=== PATIENT | female | born 2000 | race Caucasian/White ===

== ENCOUNTER 2023-04-28 19:51 | Emergency (ER) | payer SELFPAY ==
[2023-04-28 20:06] VITALS: BP 127/47; PULSE 85; RESP 20; TEMP 36.8; O2SAT 100; BMI 21.4
--- NOTE | 2023-04-28 20:35 | PC.NURSE ---
patient awake and alert. skin pwd, resp even and non labored. speaking in full, clear sentences. patient states that she was wearing non puncture gloves and moved a racoon that was on the side of the road, patient states the racoon bit her left index finger, dried blood noted on finger and what appears to be a puncture area is noted. patient states that another person whom she does not know was able to capture the racoon in a cardboard box and was waiting for animal control. This RN called [facility] animal control to see if the racoon was picked up, message left. patient unsure of the last time she received a tetanus vaccine
[2023-04-28 21:20] VITALS: BP 144/90; PULSE 78; RESP 18; TEMP 36.7; O2SAT 99
--- NOTE | 2023-04-28 21:38 | PC.NURSE ---
This RN spoke with [facility] animal biologist who states that they were not informed that anyone was bitten by the racoon and they did not take the racoon, they did recommend patient start treatment. This RN completed animal bite form and will fax to animal control.
[2023-04-28] MEDS: Amoxicillin/Potassium Clav 875 MG TABLET PO (22:43)
[2023-04-28] MEDS: Rabies Vaccine, Human Diploid (Imovax) 1 ML VIAL IM (22:43)
[2023-04-28] MEDS: Diphth,Pertus(ACell),Tet Adult 0.5 ML SYRINGE IM (22:44)
[2023-04-28] MEDS: Rabies Immune Globulin/PF 900 UNIT/3 ML VIAL 1060 UNIT IM (22:45)
--- NOTE | 2023-04-28 22:52 | ED.GENADULT ---
HPI - General Adult General Chief complaint: Animal Bite Stated complaint: raccoon bite left hand Time Seen by Provider: 04/28/23 21:45 Source: patient, RN notes reviewed and old records reviewed Mode of arrival: ambulatory Limitations: no limitations History of Present Illness HPI narrative: 23-year-old female who denies any past medical history presents for evaluation of a raccoon bite. Patient was trying to assist another individual and moving a raccoon The patient was bit on her left index finger She has a small superficial puncture wound to the dorsal and ventral surface of the left index finger No active bleeding She cleaned the area herself by washing her hands No other injuries Related Data Previous Rx's Medication Instructions Recorded amoxicillin 875 mg-potassium 1 tab PO Q12H #14 tabs 04/28/23 clavulanate 125 mg tablet Allergies Allergy/AdvReac Type Severity Reaction Status Date / Time No Known Allergies Allergy Verified 04/28/23 20:06 Review of Systems Integumentary/Breasts: Skin/Breast: Reports wounds PMFSH Social History Social History Advance Directives: No Advance Directives Information Provided: No Physical Exam ED Vital Signs: Vital Signs - 24 hr 04/28/23 20:06 04/28/23 21:20 Temperature 98.3 F 98.1 F Pulse Rate 85 78 Respiratory Rate 20 18 Blood Pressure 127/47 L 144/90 H Pulse Oximetry 100 99 Oxygen Delivery Method Room Air Room Air BMI result Body Mass Index 21.4 Const General: healthy appearing, comfortable, no acute distress, alert and awake Nutritional Appearance: well nourished Orientation/consciousness: patient oriented x3 HENMT Head: Yes normocephalic and Yes atraumatic Eyes Eyelids: Yes eyelids normal Conjunctivae: conjunctivae normal Sclerae: sclerae normal Corneas: corneas normal Pupils: Equal, round and reactive pupils present EOM: EOMs intact bilaterally Resp Effort & Inspection: normal respiratory effort, able to speak in complete sentences and not labored Skin Other: Patient has small, superficial puncture wound on the dorsal surface of the left index finger in between the D IP and PIP joints. There is a similar puncture wound on the ventral surface between the PIP and PIP joints. No bleeding General skin exam: elasticity normal Neuro General: patient oriented x3 Cranial nerves: Yes Equal, round and reactive pupils present and Yes Bilaterally intact EOM present Cognition (Neuro): normal cognition Extrem Other: Moving all extremities well without any obvious deformities Medications Administered Discontinued Medications Generic Name Dose Route Start Last Admin Trade Name Federicoq PRN Reason Stop Dose Admin Amoxicillin/Clavulanate Potassium 875 mg 04/28/23 22:19 04/28/23 22:43 Amoxicillin/Potassium Clav 875 Mg Tablet PO 04/28/23 22:20 875 mg ONCE ONE Administration Diphtheria/Tetanus/Acell Pertussis 0.5 ml 04/28/23 22:19 04/28/23 22:44 Diphth,Pertus(Acell),Tet Adult 0.5 Ml Syringe IM 04/28/23 22:20 0.5 ml .ONCE ONE Administration Rabies Immune Globulin 1,060 unit 04/28/23 22:19 04/28/23 22:45 Rabies Immune Globulin/Pf 900 Unit/3 Ml Vial 20 unit/kg (1060 unit) 04/28/23 22:20 1,060 unit IM Administration ONCE ONE Rabies Vaccine Human Diploid Cell 1 ml 04/28/23 22:19 04/28/23 22:43 Rabies Vaccine, Human Diploid (Imovax) 1 Ml Vial IM 04/28/23 22:20 1 ml .ONCE ONE Administration Medical Decision Making Medical Decision Making MDM Narrative: 23-year-old female presents for evaluation of a raccoon bite. Her tetanus will be updated, she will be given rabies vaccine series as the animal was not tested for rabies and she will be given antibiotic prophylaxis. I personally injected 1/2 cc of rabies vaccine around the small bite wound to the finger. I was unable to do an entire half of the dose as the bite area was to a distal finger Differential Diagnosis Differential Diagnoses: The differential diagnosis associated with the presentation includes Rabies exposure Raccoon bite Puncture wound Tetanus exposure Discharge Plan Discharge Clinical Impression: Bite by animal Patient Disposition: Home, Self-Care Instructions: Animal Bite (ED) Additional Instructions: Take Augmentin twice daily for 7 days. Your tetanus was updated today You need to return to the hospital on 04/30, 05/04, and 05/11 for the completion of the rabies series Return for new or worsening symptoms Prescriptions: New amoxicillin-pot clavulanate 875-125 mg tablet 1 tab PO Q12H Qty: 14 0RF
--- NOTE | 2023-04-28 23:11 | PC.NURSE ---
animal bite form faxed to [facility]. rabies vaccine order set faxed. copies in rabies vaccine folder. patient medicated as ordered. tolerated well. instructions reviewed w/ patient.
[2023-04-28 23:13] VITALS: BP 101/71; PULSE 87; RESP 16; TEMP 37; O2SAT 99
== END 2023-04-28 23:14 | disposition home or self-care (01) ==
PROVIDERS: Emergency Provider Internal Medicine; PCP Nurse Practitioner Gerontology
DX: S61.452A Open bite of left hand, initial encounter (principal); M79.642 Pain in left hand; W55.51XA Bitten by raccoon, initial encounter; Y93.9 Activity, unspecified; Y92.9 Unspecified place or not applicable; Y99.8 Other external cause status
CPT/HCPCS: 90375; 90675; 90715; 99282; 99284

== ENCOUNTER 2023-05-01 12:59 | Emergency (ER) | payer SELFPAY ==
[2023-05-01 13:13] VITALS: BP 98/62; PULSE 94; RESP 18; TEMP 36.4; O2SAT 99; BMI 21.4
--- NOTE | 2023-05-01 13:14 | ED.GENADULT ---
HPI - General Adult General Chief complaint: General Medical Stated complaint: Needs rabies vaccine missed lara Time Seen by Provider: 05/01/23 16:16 Source: patient and family (dad) Mode of arrival: ambulatory Limitations: no limitations History of Present Illness HPI narrative: 23-year-old female presents to the ED today requesting rabies vaccination. She was seen in our ED 4 days ago after sustaining a raccoon bite to her finger. She was administered 1st rabies vaccination at that time. She was then advised to follow-up for further vaccinations. She states that she missed her 10:00 a.m. appointment today because she thought it was at 3:00 p.m.. She presents today requesting the 2nd dose of her rabies vaccine. She states that she tolerated the 1st dose well. No complaints or concerns at this time Related Data Previous Rx's Medication Instructions Recorded amoxicillin 875 mg-potassium 1 tab PO Q12H #14 tabs 04/28/23 clavulanate 125 mg tablet Allergies Allergy/AdvReac Type Severity Reaction Status Date / Time No Known Allergies Allergy Verified 05/01/23 13:12 Review of Systems Review of Systems: Constitutional: No fever, chills, fatigue, night sweats, weight changes ENT/Mouth: No ear pain, hearing loss, nasal congestion, sinus pain, rhinorrhea, sore throat Eyes: No eye pain, swelling, redness, vision changes, discharge Cardio: No chest pain, palpitations, MASON, orthopnea, peripheral edema Pulm: No SOB, cough, sputum, wheezing, dyspnea, hemoptysis GI: No nausea, vomiting, hematemesis, abdominal pain, diarrhea, constipation, hematochezia, melena : No irregular bleeding, dysuria, frequency, urgency, hesitancy, hematuria, flank pain, urinary flow changes, urinary incontinence or retention MSK: No back pain, neck pain, joint pain, myalgias Skin: No lesions, rashes Neuro: No weakness, numbness, paresthesias, LOC, dizziness, headache Psych: No anxiety/panic, depression, SI/HI, AH/VH All other systems reviewed and are negative. [facility] Past Medical History Attestation statement: The following information was validated with the patient. Source: old records reviewed and nursing notes reviewed Social History Social History Advance Directives: No Advance Directives Information Provided: No Physical Exam ED Vital Signs: Vital Signs - 24 hr 05/01/23 13:13 05/01/23 15:40 Temperature 97.5 F 97.5 F Pulse Rate 94 61 Respiratory Rate 18 16 Blood Pressure 98/62 105/65 Pulse Oximetry 99 97 Oxygen Delivery Method Room Air Room Air BMI result Body Mass Index 21.4 Vital signs stable, afebrile Const General: cooperative, healthy appearing, comfortable and no acute distress Orientation/consciousness: patient oriented x3 Limitations: no limitations HENMT Head: Yes normal to inspection, Yes No palpable skull fracture present, Yes normocephalic and Yes atraumatic Ears: hearing grossly normal bilaterally General nose exam: Normal external nose present Face and sinus: Yes normal facial exam Mouth: Normal oral and palatal mucosa present Eyes General: appearance normal, both eyes and all related structures Conjunctivae: conjunctivae normal Sclerae: sclerae normal Pupils: Equal, round and reactive pupils present Neck Neck: Yes normal visual inspection, Yes full ROM, Yes no lymphadenopathy and Yes no meningeal signs Resp Effort & Inspection: normal respiratory effort and able to speak in complete sentences Auscultation: clear to auscultation bilaterally Cardio Rate: regular rate Rhythm: regular rhythm GI Inspection: Yes normal to inspection Skin General skin exam: no rashes or lesions noted Neuro General: patient oriented x3, gait normal, no meningeal signs and no focal motor deficits Cranial nerves: Yes Equal, round and reactive pupils present Gait exam (Neuro): Normal gait present Pupils: Normal pupillary reactivity/response: bilateral Extrem General: Yes normal to inspection Course Course Course Narrative: RME:?23 yo female here requesting 2nd dose of rabies vaccination after missing her appointment this morning. Her appointment was at 10:00 a.m. this morning however she thought it was at 3:00 p.m.. Admits to being bitten by a raccoon 3 days ago on her finger. This will be her 2nd vaccine. Denies any side effects from the 1st vaccination. denies any physical complaints at present. vaccine ordered. Full HPI, ROS and PE to be performed by the primary ED provider. Reevaluation(s) Reevaluation #1: [id number]-- 2nd rabies vaccination administered. Patient tolerated this well. Discussed the importance of keeping her appointments for further rabies vaccinations. She verbalizes understanding. Patient has remained stable throughout ED visit today. Discussed worrisome signs and symptoms and when to return to the ED. All questions answered at this time. Patient is agreeable with disposition and stable for discharge. Medications Administered Discontinued Medications Generic Name Dose Route Start Last Admin Trade Name Isela PRN Reason Stop Dose Admin Rabies Vaccine Human Diploid Cell 1 ml 05/01/23 13:15 05/01/23 16:14 Rabies Vaccine, Human Diploid (Imovax) 1 Ml Vial IM 05/01/23 13:16 1 ml .ONCE ONE Administration Medical Decision Making Medical Decision Making MDM Narrative: 23-year-old female presents to the ED today requesting rabies vaccination. Vital signs stable. Afebrile. She is nontoxic-appearing and in no acute distress. Exam nonfocal. PERRLA. Lungs CTA bilaterally. Lying comfortably on the exam bed. Exam benign. Plan for rabies vaccine administration. Differential Diagnosis Differential Diagnoses: The differential diagnosis associated with the presentation includes As above Admission/Observation Not indicated Independent Historian Clinical information obtained from an independent historian. History obtained from or confirmed by: Parent (Dad) Critical Care Time Critical Care Time Critical Care Time: No Discharge Plan Discharge Clinical Impression: Need for rabies vaccination Patient Disposition: Home, Self-Care Instructions: Rabies Vaccine (By injection), Rabies Immune Globulin (By injection), Rabies (ED) Additional Instructions: You missed your 2nd dose of rabies vaccine today. You were administered this dose in the ED. Please make sure you are keeping up with your appointments and making it to them on time. Return for new or worsening symptoms. In the case of an emergency call 911. Prescriptions: No Action amoxicillin-pot clavulanate 875-125 mg tablet 1 tab PO Q12H Qty: 14 0RF Discharge Date/Time: 05/01/23 16:27
[2023-05-01 15:40] VITALS: BP 105/65; PULSE 61; RESP 16; TEMP 36.4; O2SAT 97
[2023-05-01] MEDS: Rabies Vaccine, Human Diploid (Imovax) 1 ML VIAL IM (16:14)
--- NOTE | 2023-05-01 16:21 | PC.NURSE ---
pt medicated per MAR- rabies vax adm left deltoid
== END 2023-05-01 16:27 | disposition home or self-care (01) ==
PROVIDERS: Emergency Provider Emergency Medicine; PCP Nurse Practitioner Gerontology
DX: Z29.14 Encounter for prophylactic rabies immune globulin (principal); Z20.3 Contact with and (suspected) exposure to rabies; S61.259D Open bite of unspecified finger without damage to nail, subsequent encounter; W55.51XD Bitten by raccoon, subsequent encounter
CPT/HCPCS: 90471; 90675; 99283; 99284

== ENCOUNTER 2023-05-06 14:24 | Outpatient (REF) | payer SELFPAY ==
[2023-05-06 14:26] VITALS: BP 108/61; PULSE 90; RESP 20; TEMP 36.3; O2SAT 100
[2023-05-06] MEDS: Rabies Vaccine, Human Diploid (Imovax) 1 ML VIAL IM (14:31)
== END 2023-05-06 14:25 | disposition home or self-care (01) ==
LOC: HO.MDS 14:24
PROVIDERS: Visit Provider Internal Medicine
DX: Z20.3 Contact with and (suspected) exposure to rabies (principal); T14.8XXD Other injury of unspecified body region, subsequent encounter; W55.51XD Bitten by raccoon, subsequent encounter
CPT/HCPCS: 90471; 90675